=== PATIENT | male | born 1985 | race Hispanic/Latino ===

== ENCOUNTER 2022-10-04 09:08 | Emergency (ER) | payer OTHER ==
[~2022-10-04] VITALS: Ht 180.3 cm; Wt 114.0 kg
[2022-10-04 09:09] VITALS: BP 148/89
[2022-10-04] MEDS ORDERED: CEPH500C PO (10:06)
== END 2022-10-04 10:18 | disposition home or self-care (01) ==
LOC: M ED 09:08
DX: L03.113 Cellulitis of right upper limb (principal)

== ENCOUNTER 2022-10-15 20:33 | Emergency (ER) | payer OTHER ==
[~2022-10-15] VITALS: Ht 177.8 cm; Wt 104.5 kg
[~2022-10-15 20:33] MED LIST: CEPH500C PO
[2022-10-15] MEDS ORDERED: IBUP80TA PO (20:38)
[2022-10-15] MEDS ORDERED: traMADol 50 MG TAB PO ONE (22:05)
[2022-10-15] MEDS ORDERED: TRAM50TA2 PO (23:07)
[2022-10-15] MEDS ORDERED: IBUP-1022 PO (23:07)
[2022-10-15 23:19] VITALS: BP 131/86
== END 2022-10-15 23:38 | disposition home or self-care (01) ==
LOC: M ED 20:33
DX: S93.401A Sprain of unspecified ligament of right ankle, initial encounter (principal); M23.91 Unspecified internal derangement of right knee; X50.1XXA Overexertion from prolonged static or awkward postures, initial encounter; Y92.322 Soccer field as the place of occurrence of the external cause